=== PATIENT | female | born 1940 ===

== ENCOUNTER → 2023-07-07 | Outpatient (CLI) | payer MEDICARE, OTHER ==
[~2023-07-07] VITALS: Ht 157.5 cm; Wt 45.0 kg
[~2023-07-07] MED LIST: LOSA-382 PO; NIFE-129 PO; PRED-554 PO; SIMV-260 PO
[2023-07-07 09:18] VITALS: BP 187/88; PULSE 97; RESP 15; TEMP 98.2; O2SAT 91
== END | disposition home or self-care (01) ==
LOC: SRCNTR 09:03
PROVIDERS: ATTEND Internal Medicine
DX: J44.9 Chronic obstructive pulmonary disease, unspecified (principal); E11.9 Type 2 diabetes mellitus without complications; I10 Essential (primary) hypertension
CPT/HCPCS: G0463; Z7500